=== PATIENT | female | born 1930 | race Caucasian/White ===

== ENCOUNTER 2019-01-14 09:21 | Inpatient (IN) | payer MEDICARE, OTHER ==
[2019-01-14 09:34] VITALS: RESP 18
[2019-01-14] MEDS ORDERED: SODIUM CHLORIDE 0.9% 500 ML 500 ML IV ONE (09:37)
[2019-01-14] MEDS ORDERED: ASPIRIN 81 MG PO STA (09:37)
[2019-01-14] MEDS ORDERED: DILTIAZEM DRIP BOLUS FROM BAG 1 MG SOLN IV ONE ×2 (10:13→11:18)
--- NOTE | 2019-01-14 10:22 | XR ---
EXAMINATION TYPE: XR chest 2V DATE OF EXAM: 01/14/2019 COMPARISON: NONE HISTORY: Tachycardia and chest pain TECHNIQUE: Frontal and lateral views of the chest are obtained. FINDINGS: There is no focal air space opacity, pleural effusion, or pneumothorax seen. Minimal retr ocardiac linear airspace disease on the lateral view relates to subsegmental atelectasis is linear kn ee. There is pulmonary hyperinflation with suspected underlying emphysematous change. The cardiac ramo houette size is mildly enlarged. The osseous structures are intact. There is diffuse osseous demine ralization. IMPRESSION: Minimal left basilar subsegmental atelectasis otherwise no acute cardiopulmonary process . Suspected underlying mild emphysematous change.
[2019-01-14 10:24] LABS: INR 0.9 (<1.2); Partial Thromboplastin Time 23.2 sec (22.0-30.0)
[2019-01-14 10:25] LABS: Albumin 4.3 g/dL (3.5-5.0); Calcium 9.8 mg/dL (8.4-10.2); Magnesium 1.8 mg/dL (1.6-2.3); Potassium 4.8 mmol/L (3.5-5.1); Total Bilirubin 0.5 mg/dL (0.2-1.3); Total Protein 6.8 g/dL (6.3-8.2)
[2019-01-14 10:28] LABS: Basophils % (A) 0 %; Eosinophils # (A) 0.2 k/uL (0-0.7); Eosinophils % (A) 2 %; HCT 45.9 % (34.0-46.0); HGB 14.6 gm/dL (11.4-16.0); Lymphocytes # (A) 3.8 k/uL (1.0-4.8); Lymphocytes % (A) 37 %; MCH 30.5 pg (25.0-35.0); MCHC 31.7 g/dL (31.0-37.0); MCV 96.1 fL (80.0-100.0); Mean Platelet Volume 7.6; Monocytes # (A) 0.5 k/uL (0-1.0); Monocytes % (A) 5 %; Neutrophils # (A) 5.5 k/uL (1.3-7.7); Neutrophils % (A) 53 %; Platelet Count 327 k/uL (150-450); RBC 4.77 m/uL (3.80-5.40); WBC 10.5 k/uL (3.8-10.6)
[2019-01-14] MEDS ORDERED: HEPARIN SODIUM,PORCINE 5,000 UNIT/ML 1 ML VIAL IV PRN (11:04)
[2019-01-14] MEDS ORDERED: HEPARIN SODIUM,PORCINE 5,000 UNIT/ML 1 ML VIAL IV ONE (11:04)
[2019-01-14] MEDS ORDERED: NITROGLYCERIN SL TABS 0.4 MG TAB SUBLINGUAL PRN (11:22)
--- NOTE | 2019-01-14 11:22 | ED ---
General Adult HPI - General Source: patient, RN notes reviewed Mode of arrival: wheelchair Limitations: no limitations <Chapito Crook - Last Filed: 01/14/19 11:18> <Dhaval Bolton - Last Filed: 01/14/19 13:24> - General Chief complaint: Recheck/Abnormal Lab/Rx Stated complaint: chest pain; sob Time Seen by Provider: 01/14/19 09:37 - History of Present Illness Initial comments: 88-year-old female presents emergency Department chief complaint of palpitations. Patient states she woke up around 4:30 AM and states that she felt her heart racing with no associated chest pain. Patient states that they have decided that she has a lot of stress and this is what was causing her symptoms. Patient states she lost her 3 weeks ago and has a sister in the hospital. Patient states that she took Xanax and went back to sleep woke up feeling lightheaded, dizzy and is generalized weak. Patient has no focal def icits. Patient denies any recent cardiac history doesn't history of hypertension hyperlipidemia. Patient has no current shortness of breath. But did have some earlier (Chapito Crook) - Related Data Home Medications Medication Instructions Recorded Confirmed Acetaminophen/Diphenhydramine 1 - 2 tab PO HS 01/14/19 01/14/19 [Tylenol PM 500-25mg] Aspirin EC [Ecotrin Low Dose] 81 mg PO DAILY 01/14/19 01/14/19 Atenolol [Tenormin] 25 mg PO DAILY 01/14/19 01/14/19 Cholecalciferol [Vitamin D3 (25 1,000 unit PO DAILY 01/14/19 01/14/19 Mcg = 1000 Iu)] Enalapril [Vasotec] 2.5 mg PO DAILY 01/14/19 01/14/19 Indomethacin [Indocin] 25 mg PO DAILY 01/14/19 01/14/19 Levothyroxine Sodium [Synthroid] 100 mcg PO DAILY 01/14/19 01/14/19 Melatonin 10 mg PO HS 01/14/19 01/14/19 Omeprazole 20 mg PO DAILY 01/14/19 01/14/19 Simvastatin [Zocor] 20 mg PO HS 01/14/19 01/14/19 Allergies Allergy/AdvReac Type Severity Reaction Status Date / Time Penicillins Allergy Rash/Hives Verified 01/14/19 09:47 shingles vac Allergy Unknown Uncoded 01/14/19 09:35 Review of Systems ROS Other: All systems not noted in ROS Statement are negative. <Chapito Crook - Last Filed: 01/14/19 11:18> ROS Other: All systems not noted in ROS Statement are negative. <Dhaval Bolton - Last Filed: 01/14/19 13:24> ROS Statement: Those systems with pertinent positive or pertinent negative responses have been documented in the HPI. Past Medical History Past Medical History: Hyperlipidemia, Hypertension, Thyroid Disorder History of Any Multi-Drug Resistant Organisms: None Reported Past Surgical History: Tonsillectomy Additional Past Surgical History / Comment(s): thyroid breast surg Smoking Status: Never smoker Past Alcohol Use History: None Reported Past Drug Use History: None Reported <Chapito Crook - Last Filed: 01/14/19 11:18> General Exam Limitations: no limitations General appearance: alert, in no apparent distress Head exam: Present: atraumatic, normocephalic, normal inspection Eye exam: Present: normal appearance, PERRL, EOMI. Absent: scleral icterus, conjunctival injection, periorbital swelling ENT exam: Present: normal exam, normal oropharynx, mucous membranes moist Neck exam: Present: normal inspection, full ROM. Absent: tenderness, meningismus, lymphadenopathy Respiratory exam: Present: normal lung sounds bilaterally. Absent: respiratory distress, wheezes, rales, rhonchi, stridor Cardiovascular Exam: Present: tachycardia, irregular rhythm, normal heart sounds. Absent: normal rhythm, systolic murmur, diastolic murmur, rubs, gallop, clicks GI/Abdominal exam: Present: soft, normal bowel sounds. Absent: distended, tenderness, guarding, rebound, rigid <Chapito Crook - Last Filed: 01/14/19 11:18> Course <Dhaval Bolton - Last Filed: 01/14/19 13:24> Vital Signs 01/14/19 01/14/19 01/14/19 09:29 10:00 10:30 Temperature 97.9 F Pulse Rate 78 Respiratory 18 Rate Blood Pressure 100/45 104/58 106/67 O2 Sat by Pulse 96 94 L 94 L Oximetry 01/14/19 01/14/19 01/14/19 11:30 12:00 12:15 Temperature Pulse Rate 117 H 128 H Respiratory Rate Blood Pressure 97/82 101/80 99/69 O2 Sat by Pulse 91 L 96 95 Oximetry 01/14/19 12:45 Temperature Pulse Rate 114 H Respiratory 18 Rate Blood Pressure 97/83 O2 Sat by Pulse 98 Oximetry - Reevaluation(s) Reevaluation #1: 01/14/19 12:06 PA supervision: Patient was evaluated by me [id number] patient does have evidence of paroxysmal atrial fibrillation. She is on Cardizem. Patient will be admitted I did discuss case with Dr. Altamirano. Cardiology will be consulted. I do agree with the assessment and plan 01/14/19 13:[address] Guerrero as her corporate recruiter. The order has been placed. Patient was noted to slow down from the 140s to the 60s and 70s during my second interview. (Dhaval Bolton) EKG Findings - EKG Comments: EKG Findings:: EKG performed at 10:08 A. fib with RVR left axis deviation rate of 139 QRS 78 QT status QTC 314/477 <Chapito Croko - Last Filed: 01/14/19 11:18> Medical Decision Making - Lab Data Result diagrams: 01/14/19 09:57 01/14/19 09:57 <Chapito Crook - Last Filed: 01/14/19 11:18> - Lab Data Result diagrams: 01/14/19 09:57 01/14/19 09:57 <Dhaval Bolton - Last Filed: 01/14/19 13:24> - Medical Decision Making 88-year-old female presented for palpitations. Patient's found to be in A. fib RVR patient will be admitted to telemetry (Chapito Crook) - Lab Data Lab Results 01/14/19 01/14/19 01/14/19 Range/Units 09:57 09:57 09:57 WBC 10.5 (3.8-10.6) k/uL RBC 4.77 (3.80-5.40) m/uL Hgb 14.6 (11.4-16.0) gm/dL Hct 45.9 (34.0-46.0) % MCV 96.1 (80.0-100.0) fL MCH 30.5 (25.0-35.0) pg MCHC 31.7 (31.0-37.0) g/dL RDW 14.0 (11.5-15.5) % Plt Count 327 (150-450) k/uL Neutrophils % 53 % Lymphocytes % 37 % Monocytes % 5 % Eosinophils % 2 % Basophils % 0 % Neutrophils # 5.5 (1.3-7.7) k/uL Lymphocytes # 3.8 (1.0-4.8) k/uL Monocytes # 0.5 (0-1.0) k/uL Eosinophils # 0.2 (0-0.7) k/uL Basophils # 0.0 (0-0.2) k/uL PT (9.0-12.0) sec INR (<1.2) APTT (22.0-30.0) sec Sodium 141 (137-145) mmol/L Potassium 4.8 (3.5-5.1) mmol/L Chloride 105 (98-107) mmol/L Carbon Dioxide 29 (22-30) mmol/L Anion Gap 7 mmol/L BUN 23 H (7-17) mg/dL Creatinine 0.95 (0.52-1.04) mg/dL Est GFR (CKD-EPI)AfAm 63 (>60 ml/min/1.73 sqM) Est GFR (CKD-EPI)NonAf 54 (>60 ml/min/1.73 sqM) Glucose 105 H (74-99) mg/dL Calcium 9.8 (8.4-10.2) mg/dL Magnesium 1.8 (1.6-2.3) mg/dL Total Bilirubin 0.5 (0.2-1.3) mg/dL AST 20 (14-36) U/L ALT 21 (9-52) U/L Alkaline Phosphatase 45 (38-126) U/L Troponin I (0.000-0.034) ng/mL NT-Pro-B Natriuret Pep 1200 pg/mL Total Protein 6.8 (6.3-8.2) g/dL Albumin 4.3 (3.5-5.0) g/dL 01/14/19 01/14/19 Range/Units 09:57 09:57 WBC (3.8-10.6) k/uL RBC (3.80-5.40) m/uL Hgb (11.4-16.0) gm/dL Hct (34.0-46.0) % MCV (80.0-100.0) fL MCH (25.0-35.0) pg MCHC (31.0-37.0) g/dL RDW (11.5-15.5) % Plt Count (150-450) k/uL Neutrophils % % Lymphocytes % % Monocytes % % Eosinophils % % Basophils % % Neutrophils # (1.3-7.7) k/uL Lymphocytes # (1.0-4.8) k/uL Monocytes # (0-1.0) k/uL Eosinophils # (0-0.7) k/uL Basophils # (0-0.2) k/uL PT 10.0 (9.0-12.0) sec INR 0.9 (<1.2) APTT 23.2 (22.0-30.0) sec Sodium (137-145) mmol/L Potassium (3.5-5.1) mmol/L Chloride (98-107) mmol/L Carbon Dioxide (22-30) mmol/L Anion Gap mmol/L BUN (7-17) mg/dL Creatinine (0.52-1.04) mg/dL Est GFR (CKD-EPI)AfAm (>60 ml/min/1.73 sqM) Est GFR (CKD-EPI)NonAf (>60 ml/min/1.73 sqM) Glucose (74-99) mg/dL Calcium (8.4-10.2) mg/dL Magnesium (1.6-2.3) mg/dL Total Bilirubin (0.2-1.3) mg/dL AST (14-36) U/L ALT (9-52) U/L Alkaline Phosphatase (38-126) U/L Troponin I 0.036 H* (0.000-0.034) ng/mL NT-Pro-B Natriuret Pep pg/mL Total Protein (6.3-8.2) g/dL Albumin (3.5-5.0) g/dL Critical Care Time Critical Care Time: Yes Total Critical Care Time: 35 <Chapito Crook - Last Filed: 01/14/19 11:18> Critical Care Time: 35 minutes of critical care time were initially used to evaluate the patient, review past medical history reviewed vitals and examined the patient. Labs, EKG, chest x-ray are ordered. EKG shows evidence of A. fib with RVR. Cardizem bolus and drip were ordered. Patient will be placed on heparin low-dose intensity at this time. Case was reviewed with hospitalist in which the patient will be admitted and have cardiology evaluation. (Chapito Crook) Disposition <Chapito Crook - Last Filed: 01/14/19 11:18> <Dhaval Bolton - Last Filed: 01/14/19 13:24> Clinical Impression: Atrial fibrillation with RVR Disposition: ADMITTED IP TO THIS HOSP Condition: Fair
[2019-01-14] MEDS: DILTIAZEM 125 MG in SODIUM CHLORIDE 0.9% 100 ML IV SCH (11:38)
[2019-01-14] MEDS: HEPARIN SOD,PORK IN 0.45% NACL 25,000 UNIT in 0.45% NACL 1 250ML.BAG IV SCH (11:45)
[2019-01-14] MEDS ORDERED: ATORVASTATIN 10 MG TAB PO SCH (21:00)
[2019-01-14] MEDS ORDERED: MELATONIN 5 MG TABLET PO SCH (21:00)
[2019-01-15] MEDS ORDERED: LEVOTHYROXINE 100 MCG TAB PO SCH (06:30)
[2019-01-15 06:54] LABS: Prothrombin Time 10.4 sec (9.0-12.0)
[2019-01-15 06:58] LABS: Cholesterol 129 mg/dL (<200); HDL Cholesterol 55 mg/dL (40-60); LDL Cholesterol,Calculated 52 mg/dL (0-99); Triglycerides 109 mg/dL (<150)
[2019-01-15] MEDS ORDERED: PANTOPRAZOLE 40 MG TABLET PO SCH (07:30)
[2019-01-15] MEDS: DILTIAZEM 125 MG in SODIUM CHLORIDE 0.9% 100 ML IV SCH ×2 (08:36→08:37)
[2019-01-15] MEDS: HEPARIN SOD,PORK IN 0.45% NACL 25,000 UNIT in 0.45% NACL 1 250ML.BAG IV SCH (08:38)
[2019-01-15] MEDS ORDERED: ASPIRIN 81 MG PO SCH (09:00)
[2019-01-15] MEDS ORDERED: ASPIRIN 325 MG TAB PO SCH (09:00)
[2019-01-15] MEDS ORDERED: LISINOPRIL 5 MG TAB PO SCH (09:00)
[2019-01-15] MEDS ORDERED: ATENOLOL 25 MG TAB PO SCH (09:00)
[2019-01-15] MEDS ORDERED: INDOMETHACIN 25 MG CAP PO SCH (09:00)
[2019-01-15 11:08] VITALS: BMI 24.1
--- NOTE | 2019-01-15 11:40 | P.CRDCN ---
History of Present Illness Consult date: 01/15/19 Requesting physician: Rodriguez Altamirano Consult reason: atrial fibrillation Chief complaint: Palpitations History of present illness: This is a pleasant 88-year-old female who has a known history of hypertension, hyperlipidemia, hypothyroidism, she presents to the hospital with symptoms of palpitations and heart racing. She states that the symptoms wake her up from sleep. Every few months she notices these symptoms, her family care physician has instructed her to take Xanax when this happens. She's also been told to take intermittent clonidine if she notices her blood pressure to be over 170/90. Patient has also been under a lot of stress recently, she lost her 3 weeks ago, her daughter was also just diagnosed with cancer. According to the patient, she states that she does get these symptoms of heart racing every couple of months, for at least a year or so. Chest x-ray shows minimal left basilar subsegmental atelectasis otherwise no acute cardiopulmonary process. EKG on arrival here shows atrial fibrillation with a rapid ventricular response, patient was initiated on IV Cardizem drip and is currently in a normal sinus rhythm. Blood pressure 108/60 with a heart rate in the 60s this morning, 94% on room air. White blood cell count 10.5, hemoglobin 14.6, platelet count 327. Sodium 141, potassium 4.8, BUN 23 and creatinine 0.9. Magnesium 1.8. Troponins 0.036, 0.13, 0.18. BNP level 1200. The time of my examination this morning, patient feels well, continues to be in a normal sinus rhythm. Past Medical History Past Medical History: GERD/Reflux, Hyperlipidemia, Hypertension, Osteoarthritis (OA), Thyroid Disorder Additional Past Medical History / Comment(s): Past migraines, hypothyroid, cervical "stiffness", arthritis neck and spine, bilateral tinnitis. History of Any Multi-Drug Resistant Organisms: None Reported Past Surgical History: Breast Surgery, Tonsillectomy, Tubal Ligation Additional Past Surgical History / Comment(s): Thyroidectomy d/t inward goiter, L breast biopsy benign, bilateral cataract removals/lens implants, colonoscopy. Past Anesthesia/Blood Transfusion Reactions: No Reported Reaction Smoking Status: Never smoker - Past Family History Father Family Medical History: Cancer, Dementia Additional Family Medical History / Comment(s): Father had encapsulated renal carcinoma with surgery. Mother Family Medical History: Respiratory Disorder Additional Family Medical History / Comment(s): Mother had TB. Medications and Allergies Home Medications Medication Instructions Recorded Confirmed Type Acetaminophen/Diphenhydramine 1 - 2 tab PO HS 01/14/19 01/14/19 History [Tylenol PM 500-25mg] Aspirin EC [Ecotrin Low Dose] 81 mg PO DAILY 01/14/19 01/14/19 History Atenolol [Tenormin] 25 mg PO DAILY 01/14/19 01/14/19 History Cholecalciferol [Vitamin D3 (25 1,000 unit PO DAILY 01/14/19 01/14/19 History Mcg = 1000 Iu)] Enalapril [Vasotec] 2.5 mg PO DAILY 01/14/19 01/14/19 History Indomethacin [Indocin] 25 mg PO DAILY 01/14/19 01/14/19 History Levothyroxine Sodium [Synthroid] 100 mcg PO DAILY 01/14/19 01/14/19 History Melatonin 10 mg PO HS 01/14/19 01/14/19 History Omeprazole 20 mg PO DAILY 01/14/19 01/14/19 History Simvastatin [Zocor] 20 mg PO HS 01/14/19 01/14/19 History Allergies Allergy/AdvReac Type Severity Reaction Status Date / Time Penicillins Allergy Rash/Hives Verified 01/14/19 09:47 shingles vac Allergy Unknown Uncoded 01/14/19 09:35 Physical Exam Vitals: Vital Signs Temp Pulse Pulse Resp BP BP Pulse Ox 01/15/19 08:00 97.2 F L 60 18 107/53 94 L 01/15/19 04:00 97.9 F 59 L 18 115/63 95 01/15/19 00:00 97.6 F 65 18 110/63 96 01/14/19 20:00 98.6 F 56 L 18 111/59 97 01/14/19 15:20 97.9 F 57 L 18 99/54 95 01/14/19 15:15 62 117/67 98 01/14/19 14:45 54 L 105/57 97 01/14/19 14:30 52 L 98/59 97 01/14/19 14:15 57 L 18 101/65 95 01/14/19 14:00 58 L 102/62 97 01/14/19 13:30 62 102/83 98 01/14/19 13:15 112 H 115/87 98 01/14/19 13:00 133 H 97/83 98 01/14/19 12:45 114 H 18 97/83 98 01/14/19 12:15 128 H 99/69 95 01/14/19 12:00 117 H 101/80 96 01/14/19 11:30 97/82 91 L Intake and Output 01/14/19 01/15/19 01/15/19 22:59 06:59 14:59 Intake Total 120 104.833 Balance 120 104.833 Intake: Intake, IV Titration 104.833 Amount Diltiazem 125 mg In 104.833 Sodium Chloride 0.9% 100 ml @ 10 MG/HR 10 mls/hr IV .[id number] [facility] Rx#: [id number] Oral 120 Other: Voiding Method Toilet Toilet Toilet # Voids 1 1 Weight 67.9 kg 67.9 kg PHYSICAL EXAMINATION: GENERAL: 88-year-old female in no acute distress at the time of my examination HEENT: Head is atraumatic, normocephalic. Pupils equal, round. Sclera anicteric. Conjunctiva are clear. Mucous membranes of the mouth are moist. Neck is supple. There is no elevated jugular venous pressure. No carotid bruit is heard. HEART EXAMINATION: Heart S1, S2 normal. No murmur or gallop heard. CHEST EXAMINATION: Lungs are clear to auscultation and precussion. No chest wall tenderness is noted on palpation or with deep breathing. ABDOMEN: Soft, nontender. Bowel sounds are heard. No organomegaly noted. EXTREMITIES: 2+ peripheral pulses with no evidence of peripheral edema and no calf tenderness noted. NEUROLOGIC patient is awake, alert and oriented 3 . . Results 01/14/19 09:57 01/14/19 09:57 Cardiac Enzymes 01/14/19 01/14/19 Range/Units 16:30 21:35 Troponin I 0.135 H* 0.185 H* (0.000-0.034) ng/mL Coagulation 01/14/19 01/15/19 01/15/19 Range/Units 16:30 06:07 08:52 PT 10.4 (9.0-12.0) sec APTT 58.9 H 49.6 H (22.0-30.0) sec Lipids 01/15/19 Range/Units 06:03 Triglycerides 109 (<150) mg/dL Cholesterol 129 (<200) mg/dL HDL Cholesterol 55 (40-60) mg/dL Current Medications Generic Name Dose Route Start Last Admin Trade Name Freq PRN Reason Stop Dose Admin Aspirin 325 mg 01/15/19 09:00 01/15/19 08:36 Aspirin PO 325 mg DAILY SEAN Administration Aspirin 81 mg 01/15/19 09:00 01/15/19 08:23 Aspirin PO Not Given DAILY SEAN Atenolol 25 mg 01/15/19 09:00 01/15/19 08:36 Tenormin PO 25 mg DAILY SEAN Administration Atorvastatin Calcium 10 mg 01/14/19 21:00 01/14/19 23:04 Lipitor PO Not Given HS SEAN Heparin Sodium (Porcine) 0 unit 01/14/19 11:04 Heparin IV PER PROTOCOL PRN Low PTT Protocol Diltiazem HCl 125 mg/ Sodium 125 mls @ 10 mls/hr 01/14/19 10:15 01/15/19 08:37 Chloride IV Not Given .[id number] SEAN 10 MG/HR Heparin Sodium/Sodium Chloride 250 mls @ 8.437 mls/hr 01/14/19 11:15 01/15/19 08:38 25,000 unit/ Sodium Chloride IV Not Given .Q24H SEAN Protocol 12 UNITS/KG/HR Indomethacin 25 mg 01/15/19 09:00 01/15/19 08:36 Indocin PO 25 mg DAILY SEAN Administration Levothyroxine Sodium 100 mcg 01/15/19 06:30 01/15/19 06:55 Synthroid PO 100 mcg DAILY@0630 SEAN Administration Lisinopril 5 mg 01/15/19 09:00 01/15/19 08:36 Zestril PO 5 mg DAILY SEAN Administration Melatonin 10 mg 01/14/19 21:00 01/14/19 23:04 Melatonin PO 10 mg HS SEAN Administration Nitroglycerin 0.4 mg 01/14/19 11:22 Nitrostat SUBLINGUAL Q5M PRN Chest Pain Pantoprazole Sodium 40 mg 01/15/19 07:30 01/15/19 06:55 Protonix PO 40 mg [id number] SEAN Administration Intake and Output 06/10/3001/15/19 01/15/19 22:59 06:59 14:59 Intake Total 120 104.833 Balance 120 104.833 Intake: Intake, IV Titration 104.833 Amount Diltiazem 125 mg In 104.833 Sodium Chloride 0.9% 100 ml @ 10 MG/HR 10 mls/hr IV .[id number] SEAN Rx#: [id number] Oral 120 Other: Voiding Method Toilet Toilet Toilet # Voids 1 1 Weight 67.9 kg 67.9 kg Patient Weight 01/16/19 06:59 Weight 67.9 kg 01/14/19 09:57 01/14/19 09:57 EKG Interpretations (text) Initial EKG showed atrial fibrillation with rapid ventricular subsequent EKG shows normal sinus rhythm with Assessment and Plan Plan: Assessment and plan #1 atrial fibrillation with rapid ventricular response, paroxysmal, currently in normal sinus rhythm #2 abnormality in troponin, likely secondary to atrial fibrillation with rapid ventricular response. #3 hypertension #4 hyperlipidemia #5 hypothyroidism Plan We will obtain an echocardiogram with Doppler study as well as a TSH level. I did have a conversation with the patient regarding Eliquis, we will check into coverage for her. If the patient's LV function is normal we may consider flecainide. Further recommendations to follow. DNP note has been reviewed, I agree with a documented findings and plan of care. Patient was seen and examined.
[2019-01-15] MEDS ORDERED: APIXABAN 5 MG TAB PO SCH (11:45)
[2019-01-15 14:11] VITALS: PULSE 52
[2019-01-15] MEDS ORDERED: PROPAFENONE 150 MG TAB PO SCH (16:00)
[2019-01-15 16:20] VITALS: BP 104/57; TEMP 97.5
--- NOTE | 2019-01-15 17:37 | P.HPIM ---
History of Present Illness H&P Date: 01/15/19 Chief Complaint: Palpitation History of presenting complaint: This is a very pleasant 88-year-old patient of Dr. Shireen Gonzalez.. Chronic stable medical conditions include GERD, hyperlipidemia, hypertension, osteoporosis, hypothyroid, osteoarthritis, left vocal cord bladder paralysis following thyroid surgery. Patient about 4 AM yesterday a.m. started getting palpitations. Lasted for a few hours. There was associated shortness of breath. Patient did feel weak and tired. Does not dizziness though S. Patient's had about 4 of these episodes in a year. Once she was hospitalized in the past for the same. It's unclear what the diagnosis was done. On this occasion she was found to be in atrial fibrillation. Cardiology was consulted. Patient is put on IV Cardizem drip. Review of systems: GEN.: Tired EYES: None HEENT: None NECK: None RESPIRATORY: None CARDIOVASCULAR: As above GASTROINTESTINAL: Reflux GENITOURINARY: None MUSCULOSKELETAL: Pain in the joint LYMPHATICS: None HEMATOLOGICAL: None PSYCHIATRY: None NEUROLOGICAL: None Past medical history: GERD, hyperlipidemia, hypertension, primary osteoarthritis, hypothyroid following thyroidectomy, cervical spine stiffness, arthritis in the neck and spine, bilateral tinnitus, left vocal cord paralysis following thyroidectomy Social history: Patient became a 3 weeks ago. Does not smoke or drink alcohol. Physical examination: VITAL SIGNS: 97.9, 115, 18, 100/45, 96% room air upon presentation GENERAL: Average built, sitting up, comfortable. EYES: Pupils equal. Conjunctiva normal. HEENT: External appearance of nose and ears normal, oral cavity grossly normal. NECK: JVD not raised; masses not palpable. HEART: First and second heart sounds are normal; no edema. LUNGS: Respiratory rate normal; clear to auscultation. ABDOMEN: Soft, nontender, liver spleen not palpable, no masses palpable. LYMPHATICS: No lymph nodes palpable in the axilla and neck. PSYCH: Alert and oriented x3; mood and affect normal. NEUROLOGICAL: Cranial nerves grossly intact; no facial asymmetry, power and sensation grossly intact. MUSCULAR skeletal: Evidence of osteoarthritis mostly the hands Investigations done in the clinical context: EKG tracing personally reviewed by me shows a total fibrillation with a rapid ventricular rate with some ST segment depression Chest x-ray-film personally reviewed by me shows borderline cardiomegaly lung bailey appear to be clear Troponins 0.036, 0.135, 0.185 TSH normal Assessment: -Paroxysmal atrial fibrillation with a rapid ventricular rate. 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 Cartilage was consulted. Home medications are resumed. Past Medical History Past Medical History: GERD/Reflux, Hyperlipidemia, Hypertension, Osteoarthritis (OA), Thyroid Disorder Additional Past Medical History / Comment(s): Past migraines, hypothyroid, cervical "stiffness", arthritis neck and spine, bilateral tinnitis. History of Any Multi-Drug Resistant Organisms: None Reported Past Surgical History: Breast Surgery, Tonsillectomy, Tubal Ligation Additional Past Surgical History / Comment(s): Thyroidectomy d/t inward goiter, L breast biopsy benign, bilateral cataract removals/lens implants, colonoscopy. Past Anesthesia/Blood Transfusion Reactions: No Reported Reaction Smoking Status: Never smoker - Past Family History Father Family Medical History: Cancer, Dementia Additional Family Medical History / Comment(s): Father had encapsulated renal carcinoma with surgery. Mother Family Medical History: Respiratory Disorder Additional Family Medical History / Comment(s): Mother had TB. Medications and Allergies Home Medications Medication Instructions Recorded Confirmed Type Aspirin EC [Ecotrin Low Dose] 81 mg PO DAILY 01/14/19 01/14/19 History Atenolol [Tenormin] 25 mg PO DAILY 01/14/19 01/14/19 History Cholecalciferol [Vitamin D3 (25 1,000 unit PO DAILY 01/14/19 01/14/19 History Mcg = 1000 Iu)] Enalapril [Vasotec] 2.5 mg PO DAILY 01/14/19 01/14/19 History Levothyroxine Sodium [Synthroid] 100 mcg PO DAILY 01/14/19 01/14/19 History Melatonin 10 mg PO HS 01/14/19 01/14/19 History Omeprazole 20 mg PO DAILY 01/14/19 01/14/19 History Simvastatin [Zocor] 20 mg PO HS 01/14/19 01/14/19 History Apixaban [Eliquis] 5 mg PO BID #60 tab 01/15/19 Rx Propafenone [Rythmol] 150 mg PO Q8HR #90 tab 01/15/19 Rx Allergies Allergy/AdvReac Type Severity Reaction Status Date / Time Penicillins Allergy Rash/Hives Verified 01/14/19 09:47 shingles vac Allergy Unknown Uncoded 01/14/19 09:35 Physical Exam Vitals: Vital Signs Temp Pulse Pulse Resp BP BP Pulse Ox 01/15/19 08:00 97.2 F L 60 18 107/53 94 L 01/15/19 04:00 97.9 F 59 L 18 115/63 95 01/15/19 00:00 97.6 F 65 18 110/63 96 01/14/19 20:00 98.6 F 56 L 18 111/59 97 01/14/19 15:20 97.9 F 57 L 18 99/54 95 01/14/19 15:15 62 117/67 98 01/14/19 14:45 54 L 105/57 97 01/14/19 14:30 52 L 98/59 97 01/14/19 14:15 57 L 18 101/65 95 01/14/19 14:00 58 L 102/62 97 01/14/19 13:30 62 102/83 98 01/14/19 13:15 112 H 115/87 98 01/14/19 13:00 133 H 97/83 98 01/14/19 12:45 114 H 18 97/83 98 01/14/19 12:15 128 H 99/69 95 01/14/19 12:00 117 H 101/80 96 Intake and Output 01/14/19 01/15/19 01/15/19 22:59 06:59 14:59 Intake Total 120 104.833 Balance 120 104.833 Intake: Intake, IV Titration 104.833 Amount Diltiazem 125 mg In 104.833 Sodium Chloride 0.9% 100 ml @ 10 MG/HR 10 mls/hr IV .[id number] [facility] Rx#: [id number] Oral 120 Other: Voiding Method Toilet Toilet Toilet # Voids 1 1 Weight 67.9 kg 67.9 kg Results CBC & Chem 7: 01/14/19 09:57 01/14/19 09:57 Labs: Abnormal Lab Results - Last 24 Hours (Table) 01/14/19 01/14/19 01/14/19 Range/Units 16:30 16:30 21:35 APTT 58.9 H (22.0-30.0) sec Troponin I 0.135 H* 0.185 H* (0.000-0.034) ng/mL 01/15/19 Range/Units 08:52 APTT 49.6 H (22.0-30.0) sec Troponin I (0.000-0.034) ng/mL Thrombosis Risk Factor Assmnt - Choose All That Apply Any of the Below Risk Factors Present?: Yes Other Risk Factors: Yes Each Risk Factor Represents 3 Points: Age 75 years or older Other congenital or acquired thrombophilia - If yes, enter type in comment: No Thrombosis Risk Factor Assessment Total Risk Factor Score: 3 Thrombosis Risk Factor Assessment Level: Moderate Risk
--- NOTE | 2019-01-15 17:41 | P.DS ---
Providers Date of admission: 01/14/19 11:22 Expected date of discharge: 01/15/19 Attending physician: Rodriguez Altamirano Consults: 01/14/19 11:22 Consult Physician Urgent Consulting Provider: Sarah Guerrero Consult Reason/Comments: afib rvr Do you want consulting provider notified?: Yes Primary care physician: Liana Gonzalez [facility] Course: Patient was admitted with rapid A. fib. Was initially put on IV heparin and IV Cardizem. Reverted to sinus rhythm. Telemetry troponin leak. Patient seen by Dr. Eddie Miller from cardiology. Patient was started on Eliquis and Rythmol. I discussed with him. Patient was okay to be discharged per him. On examination: Lungs clear Cardiovascular heart sounds regular TSH normal Patient Condition at Discharge: Fair Plan - Discharge Summary Discharge Rx Participant: No New Discharge Prescriptions: New Apixaban [Eliquis] 5 mg PO BID #60 tab Propafenone [Rythmol] 150 mg PO Q8HR #90 tab Continue Melatonin 10 mg PO HS Cholecalciferol [Vitamin D3 (25 Mcg = 1000 Iu)] 1,000 unit PO DAILY Simvastatin [Zocor] 20 mg PO HS Omeprazole 20 mg PO DAILY Levothyroxine Sodium [Synthroid] 100 mcg PO DAILY Enalapril [Vasotec] 2.5 mg PO DAILY Atenolol [Tenormin] 25 mg PO DAILY Aspirin EC [Ecotrin Low Dose] 81 mg PO DAILY Discontinued Indomethacin [Indocin] 25 mg PO DAILY Acetaminophen/Diphenhydramine [Tylenol PM 500-25mg] 1 - 2 tab PO HS Discharge Medication List Aspirin EC [Ecotrin Low Dose] 81 mg PO DAILY 01/14/19 [History] Atenolol [Tenormin] 25 mg PO DAILY 01/14/19 [History] Cholecalciferol [Vitamin D3 (25 Mcg = 1000 Iu)] 1,000 unit PO DAILY 01/14/19 [History] Enalapril [Vasotec] 2.5 mg PO DAILY 01/14/19 [History] Levothyroxine Sodium [Synthroid] 100 mcg PO DAILY 01/14/19 [History] Melatonin 10 mg PO HS 01/14/19 [History] Omeprazole 20 mg PO DAILY 01/14/19 [History] Simvastatin [Zocor] 20 mg PO HS 01/14/19 [History] Apixaban [Eliquis] 5 mg PO BID #60 tab 01/15/19 [Rx] Propafenone [Rythmol] 150 mg PO Q8HR #90 tab 01/15/19 [Rx] Follow up Appointment(s)/Referral(s): Severiano Mccarthy MD [STAFF PHYSICIAN] - 1 Week (officed closed, pt to make appt ) Liana Gonzalez MD [Primary Care Provider] - 1-2 days (office closed pt to make appt ) Patient Instructions/Handouts: A-fib (Atrial Fibrillation) (DC)
--- NOTE | 2019-01-16 16:50 | ECHOF ---
Referral Reason:palpitations MEASUREMENTS -------- HEIGHT: 167.6 cm WEIGHT: 67.6 kg BP: IVSd: 1.4 cm (0.6 - 1.1) LVIDd: 4.1 cm (3.9 - 5.3) LVPWd: 1.3 cm (0.6 - 1.1) IVSs: 1.7 cm LVIDs: 1.8 cm LVPWs: 1.9 cm LAESV Index (A-L): 16.13 ml/m Ao Diam: 2.8 cm (2.0 - 3.7) AV Cusp: 2.0 cm (1.5 - 2.6) LA Diam: 2.9 cm (2.7 - 3.8) EPSS: 0.4 cm MV E Jose: 0.76 m/s MV DecT: 224 ms MV A Jose: 0.73 m/s MV E/A Ratio: 1.04 RAP: 5.00 mmHg RVSP: 19.89 mmHg MV EF SLOPE: 60.60 mm/s (70 - 150) MV EXCURSION: 1.24 cm (> 18.000) FINDINGS -------- Sinus rhythm. Resting bradycardia (HR<60bpm). This was a technically good study. The left ventricular size is normal. There is moderate concentric left ventricular hypertrophy. O verall left ventricular systolic function is normal with, an EF between 55 - 60 %. The right ventricle is normal in size. Left atrium is normal size by volume. The right atrial size is normal. Interatrial and interventricular septum intact. Aortic valve is trileaflet and is mildly thickened. The mitral valve leaflets are mildly thickened. Mild mitral regurgitation is present. Mild tricuspid regurgitation present. There is no evidence of pulmonary hypertension. The right v entricular systolic pressure, as measured by Doppler, is 19.89mmHg. There is no pulmonic regurgitation present. The aortic root size is normal. Normal inferior vena cava with normal inspiratory collapse consistent with estimated right atrial pre ssure of 10 mmHg. There is no pericardial effusion. CONCLUSIONS -------- 1. Sinus rhythm. 2. Resting bradycardia (HR<60bpm). 3. This was a technically good study. 4. The left ventricular size is normal. 5. There is moderate concentric left ventricular hypertrophy. 6. Overall left ventricular systolic function is normal with, an EF between 55 - 60 %. 7. The right ventricle is normal in size. 8. Left atrium is normal size by volume. 9. The right atrial size is normal. 10. Interatrial and interventricular septum intact. 11. Aortic valve is trileaflet and is mildly thickened. 12. The mitral valve leaflets are mildly thickened. 13. Mild mitral regurgitation is present. 14. Mild tricuspid regurgitation present. 15. There is no evidence of pulmonary hypertension. 16. The right ventricular systolic pressure, as measured by Doppler, is 19.89mmHg. 17. There is no pulmonic regurgitation present. 18. The aortic root size is normal. 19. Normal inferior vena cava with normal inspiratory collapse consistent with estimated right atrial pressure of 10 mmHg. 20. There is no pericardial effusion. MANAGER PATIENT: Cherri Ling RDCS
== END 2019-01-15 17:56 | disposition home or self-care (01) | DRG 310 ==
LOC: EC 09:21 → 3SCARD 11:22
PROVIDERS: ADMIT Hospitalist; ATTEND Hospitalist
DX: I48.0 Paroxysmal atrial fibrillation (principal); I10 Essential (primary) hypertension; E78.5 Hyperlipidemia, unspecified; E89.0 Postprocedural hypothyroidism; M81.0 Age-related osteoporosis without current pathological fracture; M19.91 Primary osteoarthritis, unspecified site; Z96.1 Presence of intraocular lens; K21.9 Gastro-esophageal reflux disease without esophagitis; J38.01 Paralysis of vocal cords and larynx, unilateral; F32.9 Major depressive disorder, single episode, unspecified; G43.909 Migraine, unspecified, not intractable, without status migrainosus; Z79.890 Hormone replacement therapy; Z79.82 Long term (current) use of aspirin; Z79.899 Other long term (current) drug therapy; Z88.0 Allergy status to penicillin; Z88.7 Allergy status to serum and vaccine; Z90.89 Acquired absence of other organs; Z79.01 Long term (current) use of anticoagulants; Z98.51 Tubal ligation status; Z81.8 Family history of other mental and behavioral disorders; Z83.6 Family history of other diseases of the respiratory system; Z98.42 Cataract extraction status, left eye; Z98.41 Cataract extraction status, right eye; Z80.51 Family history of malignant neoplasm of kidney; Z98.890 Other specified postprocedural states; Z86.19 Personal history of other infectious and parasitic diseases
CPT/HCPCS: 36415; 71046; 80053; 80061; 83735; 83880; 84443; 84484; 85025; 85610; 85730; 93005; 93306; 96361; 96365; 96366; 96375; 96376; 99291